=== PATIENT | female | born 1960 | race Two or more races ===

== ENCOUNTER 2019-12-18 09:14 | Outpatient (CLI) | payer BC | END 2019-12-18 23:59 | disposition home or self-care (01) | LOC: LAB 09:14 | PROVIDERS: ATTEND Specialist | DX: Z01.812 Encounter for preprocedural laboratory examination (principal); Z20.828 Contact with and (suspected) exposure to other viral communicable diseases | CPT/HCPCS: 87426; C9803 ==

== ENCOUNTER 2019-12-24 05:03 | Inpatient (IN) | payer BC ==
[~2019-12-24] VITALS: Ht 160 cm; Wt 111.1 kg
--- NOTE | 2019-12-24 05:25 | NUR ---
MS RN OPEN NOTES RECEIVED PT. PT WAS ABLE TO AMBULATE TO ROOM/ BED. A/O X4. ON RA, NO SOB/ ACUTE RESPIRATORY DISTRESS NOTED. ALL PAPERWORKS SIGNED FOR SURGERY. BED IS IN LOWEST LOCKED POSITION WITH SIDE RAILS UP X3, SEMI FOWLERS. PATIENT ORIENTED TO ROOM. CALL LIGHT IS WITHIN REACH. WAITING FOR SURGICAL PROCEDURE TO TAKE PLACE/
[2019-12-24 05:30] VITALS: BP 121/57
[2019-12-24] MEDS ORDERED: ANESTHESIA TRAY IN PYXIS 1 EA TRAY MC ONE (05:39)
[2019-12-24] MEDS ORDERED: BUPIVACAINE 0.5 % PF 150 MG/30 ML VIAL ONE (05:40)
[2019-12-24] MEDS ORDERED: BACITRACIN 50000 UNITS/VIAL ONE (05:40)
--- NOTE | 2019-12-24 06:07 | NUR ---
MS RN NOTES PATIENT PICKED UP FOR SURGERY.
[2019-12-24] MEDS ORDERED: CELLULOSE,OXIDIZED 1 PKT EACH MC ONE (06:50)
[2019-12-24] MEDS ORDERED: ROCURONIUM BROMIDE 50 MG/5 ML ONE (06:50)
[2019-12-24] MEDS ORDERED: SUCCINYLCHOLINE CHLORIDE 20 MG/ML VIAL ONE (06:51)
[2019-12-24] MEDS ORDERED: HYDROMORPHONE INJ 2 MG/ML DISP.SYRIN ONE (07:20)
[2019-12-24] MEDS ORDERED: TRANEXAMIC ACID 3,000 MG in SODIUM CHLORIDE IRRIG SOLUTION 70 ML IR ONE (07:30)
[2019-12-24] MEDS ORDERED: HYDROMORPHONE 1 MG/1 ML DISP.SYRIN ONE (08:55)
[2019-12-24] MEDS ORDERED: FENTANYL PF 100MCG/2ML AMPUL ONE (09:10)
[2019-12-24] MEDS ORDERED: MENTHOL/CETYLPYRD (CEPACOL) 1 LOZ LOZENGE MM PRN (09:30)
[2019-12-24] MEDS ORDERED: ZOFRAN 4mg/2ML IV PRN (09:30)
[2019-12-24] MEDS ORDERED: SENOKOT 8.6 MG TABLET PO PRN (09:30)
[2019-12-24] MEDS ORDERED: MAG HYDROX/AL HYDROX/SIMETH 30 ML UDC PO PRN (09:30)
[2019-12-24] MEDS ORDERED: DULCOLAX 10 MG/SUPP.RECT RC PRN (09:30)
[2019-12-24] MEDS ORDERED: diphenhydrAMINE HCL 25 MG CAPSULE PO PRN (09:30)
[2019-12-24] MEDS ORDERED: MAGNESIUM HYDROXIDE 30 ML UDC PO PRN (09:30)
[2019-12-24] MEDS ORDERED: CLONIDINE HCL 0.1 MG TABLET PO PRN (09:30)
[2019-12-24] MEDS ORDERED: HYDROCODONE/APAP 5/325MG TABLET PO PRN (09:30)
[2019-12-24] MEDS ORDERED: NALOXONE HCL 0.4 MG/ML AMPUL IV PRN (09:30)
[2019-12-24] MEDS ORDERED: TYLENOL 650 MG TABLET PO PRN (09:30)
[2019-12-24] MEDS ORDERED: COLACE 250 MG CAPSULE PO PRN (09:30)
[2019-12-24] MEDS ORDERED: BISACODYL SUPP (10 MG) 10 MG/SUPP.RECT SUPP.RECT RC PRN (10:00)
--- NOTE | 2019-12-24 10:00 | NUR ---
MS RN OPENING NOTES RECEIVED PT FROM SURGERY. S/P LEFT KNEE ARTHOSPLASTY. A/O X4. O2 VIA NC @ 2L SATURATING AT 99%. NO SOB NOTED AT THIS TIME. ALL VITAL SIGNS ARE WNL. IV SITE AT L HAND, INTACT, PATENT AND FLUSHED. NS AT 125 ML/HR. WITH LEFT KNEE DRESSINGS DRY AND INTACT. REPORTED PAIN. PAIN MEDS GIVEN ORDERED. SAFETY MEASURES OBSERVED. CALL LIGHT WITHIN REACH. BED LOCKED AND AT LOWEST POSITION. WILL CONTINUE TO MONITOR.
[2019-12-24] MEDS: HYDROMORPHONE INJ 2 MG/ML DISP.SYRIN SQ PRN ×3 (11:22→20:38)
[2019-12-24] MEDS: IV D5/0.45 NACL 1,000 ML IV PRN ×2 (11:38→21:48)
[2019-12-24] MEDS ORDERED: KEY,NONCONTROL,TO KEEP IN PYXI 1 EA MC ONE ×2 (13:03→20:49)
[2019-12-24] MEDS: MORPHINE SULFATE SR 15 MG TABLET.SA PO SCH ×2 (13:33→21:41)
[2019-12-24 13:44] LABS: HEMOGLOBIN 10.6 g/dL (11.5-14.8)
[2019-12-24] MEDS ORDERED: ALBUTEROL FS 2.5 MG/0.5 ML VIAL.NEB NEB PRN (14:30)
[2019-12-24] MEDS: oxyCODONE IR immediate release 5 MG PO PRN ×3 (14:37→23:15)
[2019-12-24] MEDS ORDERED: CEFAZOLIN 2 GM in IV D5W 100 ML IV SCH (15:00)
[2019-12-24] MEDS ORDERED: CEFAZOLIN 1 GM VIAL IV SCH (15:02)
[2019-12-24] MEDS: PREGABALIN 100 MG CAPSULE PO SCH ×2 (15:38→21:41)
[2019-12-24] MEDS: ANCEF 1 GM/50 ML D5W IV SCH ×4 (15:41→23:05)
[2019-12-24 16:00] VITALS: BP 131/84
[2019-12-24] MEDS: DOCUSATE SODIUM 100 MG CAPSULE PO SCH (17:42)
--- NOTE | 2019-12-24 19:35 | NUR ---
MS RN CLOSING NOTES PT REMAINS ON BED. S/P LEFT KNEE ARTHOSPLASTY. A/O X4. O2 VIA NC @ 2L SATURATING AT 99%. NO SOB NOTED AT THIS TIME. IV SITE AT L HAND, INTACT, PATENT AND FLUSHED. NS AT 125 ML/HR. WITH LEFT KNEE DRESSINGS DRY AND INTACT. STILL IN PAIN. PAIN MEDS GIVEN ORDERED. SAFETY MEASURES OBSERVED. CALL LIGHT WITHIN REACH. BED LOCKED AND AT LOWEST POSITION. WILL ENDORSE TO STONEWORK SUPERVISOR FOR JESSICA
--- NOTE | 2019-12-24 19:55 | NUR ---
MS/RN OPENING NOTES RECEIVED PATIENT IN BED, GRIMACE AND GUARDING , ON OXYGEN VIA NC AT 2 LITER , VITAL SIGNS WNL, PAIN REPORTED OF 8, USING PETROLEUM INSPECTOR PUMP NEEDED AND RECENT MEDICATION OXY IR PO , PATIENT UNDER PAIN MANAGED BY DR CORTES USE IM DILAUDID AT 3 HOURS INTERVAL, TO MONITOR OXYGENATION., CONTINOUS PULSE ORDER, HOME MEDICATION TO ENTER, BED LOCKED, CALL LIGHTS WITHIN REACH. LEFT LEG WITH DRESSING AND MONITOR FOR ANY BLEEDING. RECEIVED ENDORSEMENT FROM AM RN FOR JESSICA WITH ORDER 0.3 MG EVERY 12 MIN LOCK OUT AND MAX AT 6 MG WITH 4 HOUR LIMIT, PATIENT JUST HAD SURGERY ON LEFT TOTAL KNEE WITH DR ENGLAND AND CAME BACK THIS AM.
[2019-12-24 20:00] VITALS: BP 136/82
--- NOTE | 2019-12-24 20:38 | NUR ---
MS/RN NOTES NEEDED MEDICATION FOR SEVERE PAIN SUBCUTANEOUS INJECTION OF DILAUDID 1 ML/0.5ML ON RIGHT UPPER ARM TO MONITOR,
--- NOTE | 2019-12-24 20:44 | NUR ---
1MG/0.5 ML SUBCUTANEOUS INJECTION DILAUDID GIVEN ON RIGHT UPPER ARM, CO SIGNED BY ANOTHER RN .
--- NOTE | 2019-12-24 21:08 | NUR ---
RECEIVED FROM PHARMACY I30ML BAG FOR MOTOR CHECKER HYFROMORPHONE MDV AND KEPT IN CONTROLLED LOCKER AT MED ROOM WITH CONTROL ARNOLD TO OPEN IT. TO INFORM INCOMING NURSE IN AM.
[2019-12-24] MEDS: FAMOTIDINE (20 MG) 20 MG TABLET PO SCH (21:40)
--- NOTE | 2019-12-24 21:41 | NUR ---
SCHEDULED MS CONTIN 30 MG PO ( 2 TABS) GIVEN SCHEDULE WITH REPORTED PAIN BETWEEN 5 TO 8 LEVEL., ALERT, ORIENTED X3, OXYGENATION AT 2 LITER AT 97%. PROVIDED FLUIDS, ON IV HYDRATION.
[2019-12-24] MEDS ORDERED: AMBIEN 5 MG TABLET PO PRN (22:00)
[2019-12-24] MEDS ORDERED: LEVO25TA7 PO (22:54)
[2019-12-24] MEDS ORDERED: ROSU40TA PO (22:55)
[2019-12-24] MEDS ORDERED: OXYC-133 PO (22:56)
[2019-12-24] MEDS ORDERED: LISI-658 PO (22:58)
[2019-12-24] MEDS ORDERED: FLUT1DIS3 INH (22:59)
[2019-12-24] MEDS ORDERED: ERGO500014 (23:01)
--- NOTE | 2019-12-24 23:18 | NUR ---
NEEDED OXY IR 15 MG PO ( 3 TABLETS) GIVEN, PATIENT ALERT, ORIENTED X3 GUARDING, GRIMACING AND WITH PAIN 7/10 TO MONITOR, FOR RELIEF. ABLE TO TOLERATE FLUIDS, NO N/V,
[2019-12-25] MEDS: HYDROMORPHONE INJ 2 MG/ML DISP.SYRIN SQ PRN ×3 (00:52→14:59)
--- NOTE | 2019-12-25 00:52 | NUR ---
NEEDED DILAUDID 1 MG/0.5ML SQ INJECTION TO GIVE FOR SEVERE PAIN, , TO MONITOR, VITAL SIGNS WBL.OXYGENATION AT 2LITER AT 97%.
[2019-12-25] MEDS: ONDANSETRON HCL/PF 4 MG/2 ML VIAL IVP PRN ×3 (02:22→21:53)
--- NOTE | 2019-12-25 02:22 | NUR ---
NEEDED ZOFRAN IVP GIVEN FOR N/V.
--- NOTE | 2019-12-25 02:30 | NUR ---
SOPHIA AT BEDSIDE AND ORDERED IV 0.45 NS AT 50 ML INSTEAD OF 125 ML/HR PATIENT IS TOLERATING FLUIDS.
[2019-12-25] MEDS: oxyCODONE IR immediate release 5 MG PO PRN ×2 (03:40→18:49)
--- NOTE | 2019-12-25 03:43 | NUR ---
NEEDED OXY IR 15 MG PO GIVEN AND MONITOR FOR PAIN RELIEF. OXYGENATION AT 2 LITER VIA NC AT 97%, ALERT, ORIENTED X3.
[2019-12-25] MEDS: MORPHINE SULFATE SR 15 MG TABLET.SA PO SCH ×3 (05:07→21:13)
[2019-12-25] MEDS: PREGABALIN 100 MG CAPSULE PO SCH ×3 (05:08→21:12)
--- NOTE | 2019-12-25 06:22 | NUR ---
312-1 MS/RN NOTES PATIENT SLEPT FEW HOURS AWAKEN DUE TO ON GOING PAIN, MEDICATED FOR PAIN AND NAUSEA AND VOMITING, SURVEY TECHNOLOGIST WITH DESIRED SETTING, NEEDED MEDICATION GIVEN ORDERED, BED LOCKED, CALL LIGHTS WITHIN REACH, MONITORED, ATTENDED ALL NEEDS. WILL ENDORSE TO AM RN FOR JESSICA.
--- NOTE | 2019-12-25 07:30 | NUR ---
RN MS NOTES PT IN BED, AWAKE, ALERT AND ORIENTED, WITH COMPLAINT OF LEFT KNEE PAIN, PAIN MEDS GIVEN ORDERED, PT ON DREDGE PUMP OPERATOR PUMP, IV FLUIDS INFUSING WELL, CALL LIGHT WITHIN REACH, ASSISTED WITH NEEDS.
[2019-12-25 07:48] LABS: BASOPHILS % (AUTO) 0.1 % (0.0-2.0); HEMATOCRIT 31 % (33-45); HEMOGLOBIN 10.3 g/dL (11.5-14.8); LYMPHOCYTES # (AUTO) 1.4 /CMM (0.8-4.8); LYMPHOCYTES % (AUTO) 12.2 % (20.0-44.0); MEAN CORPUSCULAR HGB CONC 33 g/dl (31.0-36.0); MEAN CORPUSCULAR VOLUME 90 fL (82-100); MONOCYTES # (AUTO) 0.8 /CMM (0.1-1.30); MONOCYTES % (AUTO) 6.7 % (2.0-12.0); NEUTROPHILS # (AUTO) 9.3 /CMM (1.8-8.9); PLATELET COUNT (AUTO) 213 /CMM (150-450); RED BLOOD CELL COUNT(AUTO) 3.47 MIL/uL (4.0-5.2); WHITE BLOOD COUNT (AUTO) 11.5 K/uL (4.3-11.0)
[2019-12-25 08:00] VITALS: BP 162/84
[2019-12-25] MEDS: HYDROMORPHONE MDV 30 MG in IV NS 0.9% 15 ML, PCA TOTAL VOLUME 1 BAG IV PRN ×6 (08:43→15:22)
[2019-12-25 08:48] LABS: CREATININE 0.7 mg/dL (0.6-1.3)
[2019-12-25] MEDS: ASPIRIN 325 MG TABLET PO SCH (09:00)
[2019-12-25] MEDS: FAMOTIDINE (20 MG) 20 MG TABLET PO SCH ×2 (09:06→21:12)
[2019-12-25] MEDS: DOCUSATE SODIUM 100 MG CAPSULE PO SCH ×2 (09:06→16:25)
--- NOTE | 2019-12-25 13:00 | NUR ---
RN MS NOTES PT IN BED, RESTING, PAIN MEDS GIVEN ORDERED, WITH SOME RELIEF, IV FLUIDS INFUSING WELL, SEEN BY DR. MATUTE, PLAN OF CARE DISCUSSED WITH PT, VERBALIZED UNDERSTANDING, NEEDS ATTENDED.
[2019-12-25 16:00] VITALS: BP 150/101
--- NOTE | 2019-12-25 18:26 | NUR ---
MS END OF SHIFT NOTES PT REMAINS ON BED. S/P LEFT KNEE ARTHOSPLASTY. A/O X4. O2 VIA NC @ 2L NO SOB NOTED AT THIS TIME. IV SITE AT L HAND, INTACT, PATENT AND FLUSHED. PATIENT REPORTS PAIN 8/10 ON PAIN SCALE. PAIN MEDS GIVEN ORDERED. PATIENT WITH EPISODES OF NAUSEA AND VOMITING, ZOFRAN 4 MG GIVEN. SAFETY MEASURES OBSERVED. CALL LIGHT WITHIN REACH. BED LOCKED AND AT LOWEST POSITION.
--- NOTE | 2019-12-25 18:56 | NUR ---
RN MS NOTES KUB RESULTS RELAYED TO DR. MATUTE, AWAITING ORDERS.
--- NOTE | 2019-12-25 19:40 | NUR ---
MS RN NOTE: PATIENT RESTING IN BED, NO ACUTE DISTRESS NOTED. BREATHING EVEN AND UNLABORED, NO SOB NOTED. IV TO LFA IN PLACE, INFUSING D5 1/2NS AT 50ML/HR. PATIENT ON POLICY ISSUE CLERK PUMP OF DILAUDID AT 0.3MG, LOCK OUT EVERY 12 MINUTES. BED LOCKED AND IN LOWEST POSITION, CALL LIGHT IN REACH. WILL CONTINUE TO MONITOR.
[2019-12-25 20:00] VITALS: BP 150/86
[2019-12-25] MEDS ORDERED: KEY,NONCONTROL,TO KEEP IN PYXI 1 EA MC ONE (21:06)
--- NOTE | 2019-12-25 21:55 | NUR ---
MS RN NOTE: PATIENT COMPLAINS OF NAUSEA, ZOFRAN 4MG IV GIVEN PER MD ORDER. WILL CONTINUE TO MONITOR.
[2019-12-26] MEDS: IV D5/0.45 NACL 1,000 ML IV PRN (00:59)
[2019-12-26] MEDS: HYDROMORPHONE INJ 2 MG/ML DISP.SYRIN SQ PRN ×3 (01:00→15:13)
--- NOTE | 2019-12-26 01:05 | NUR ---
MS RN NOTE: PATIENT COMPLAINS OF SEVERE PAIN EVEN WITH USE OF UTILITY WORKER ROLLER SHOP PUMP. DILAUDID 1MG SUBCUTANEOUS GIVEN PER MD ORDER. WILL CONTINUE TO MONITOR.
[2019-12-26] MEDS: ONDANSETRON HCL/PF 4 MG/2 ML VIAL IVP PRN (03:15)
[2019-12-26] MEDS ORDERED: KEY,NONCONTROL,TO KEEP IN PYXI 1 EA MC ONE ×2 (03:39→21:50)
[2019-12-26] MEDS: HYDROMORPHONE MDV 30 MG in IV NS 0.9% 15 ML, PCA TOTAL VOLUME 1 BAG IV PRN ×6 (03:44→09:51)
--- NOTE | 2019-12-26 03:45 | NUR ---
MS RN NOTE: PATIENT DILAUDID TWISTER OPERATOR PUMP BAG CHANGED. DILAUDID AT 0.3MG IV ON DEMAND, LOCK OUT 12 MINUTES, 4 HOUR MAX OF 6MG. WASTED 25ML OF DILAUDID FROM PREVIOUS BAG AND WITNESSED BY ROXI MARTIN. WILL CONTINUE TO MONITOR.
[2019-12-26] MEDS: MORPHINE SULFATE SR 15 MG TABLET.SA PO SCH ×3 (05:03→21:53)
[2019-12-26] MEDS: PREGABALIN 100 MG CAPSULE PO SCH ×3 (05:03→21:53)
--- NOTE | 2019-12-26 06:10 | NUR ---
MS RN NOTE: PATIENT RESTING IN BED, NO ACUTE DISTRESS NOTED. BREATHING EVEN AND UNLABORED, NO SOB NOTED. IV TO LFA IN PLACE, INFUSING D5 1/2NS AT 50ML/HR. PATIENT ON PUBLIC RELATIONS SALES MARKETING PUMP OF DILAUDID AT 0.3MG, LOCK OUT EVERY 12 MINUTES. BED LOCKED AND IN LOWEST POSITION, CALL LIGHT IN REACH. WILL ENDORSE TO DAY NURSE TO CONTINUE WITH PLAN OF CARE.
[2019-12-26 08:00] VITALS: BP 152/88
--- NOTE | 2019-12-26 08:55 | NUR ---
MS OPENING SHIFT NOTES RECEIVED PATIENT IN BED, AWAKE, ALERT AND ORIENTED, ON RA, PATIENT COMPLAINT OF LEFT KNEE PAIN 8/10 ON PAIN SCALE, PT ON GROOVER AND STRIPER OPERATOR PUMP, IV FLUIDS INFUSING WELL, CALL LIGHT WITHIN REACH, BED AT LOWEST POSITION AND LOCKED.
[2019-12-26] MEDS: ASPIRIN 325 MG TABLET PO SCH (09:00)
[2019-12-26] MEDS: DOCUSATE SODIUM 100 MG CAPSULE PO SCH ×2 (09:44→17:25)
[2019-12-26] MEDS: FAMOTIDINE (20 MG) 20 MG TABLET PO SCH ×2 (09:44→21:53)
--- NOTE | 2019-12-26 11:33 | NUR ---
RN MS NOTES PT SEEN BY CLEOPATRA CARR FOR ORTHO, DRESSING CHANGE DONE, PT TOLERATED WELL, STATED THAT HER PAIN LEVEL IS DOWN TO 6 AND FEELS BETTER.
[2019-12-26 16:00] VITALS: BP 137/96
--- NOTE | 2019-12-26 16:00 | NUR ---
RN MS NOTES RECEIVED ORDER FROM DR. CORTES TO D/C TEXTILE TECHNOLOGIST DILAUDID AFTER CURRENT BAG.
--- NOTE | 2019-12-26 18:44 | NUR ---
MS END OF SHIFT NOTES PATIENT RESTING IN BED, S/P LEFT KNEE ARTHOSPLASTY, A/O X4. O2 VIA NC @ 2L, ON CONTINUOUS PULSE OX. NO SOB NOTED AT THIS TIME. IV SITE AT L HAND, INTACT, PATENT AND FLUSHED. PATIENT CONTINOUS ON PAIN MANAGEMENT, WITH PAIN IMPROVEMENT NOTED. PATIENT REPORTS PAIN 4/10 ON PAIN SCALE. PIG CONVEYOR OPERATOR TO BE D/C AT 2100. PATIENT WAS ABLE TO SIT AT EDGE OF BED WITH PT ATMOSPHERIC PHYSICIST, ON CPM FOR ABOUT AN HOUR OFF AN ON TOLERATED. PT WILL CONTINUE ON PAIN MANAGEMENT AND PLAN TO DC ONCE PAIN IS CONTROLLED. PATIENT WAS ABLE TO PASS GAS, ENCOURAGED ACTIVITY, PATIENT ON INCENTIVE SPIROMETER, SAFETY MEASURES OBSERVED. CALL LIGHT WITHIN REACH. BED LOCKED AND AT LOWEST POSITION.
[2019-12-26 20:00] VITALS: BP 149/88
--- NOTE | 2019-12-26 20:00 | NUR ---
RN NOTES RECEIVED PT. SLEEPING BUT AROUSABLE, A/OX4, LEFT KNEE DRESSING DRY AND INTACT, ON NYLON HOT WIRE CUTTER DILAUDID 0.3MG, DENIES PAIN NO, SOB, CALL LIGHT WITHIN REACH, [id number], CONTINUE TO MONITOR
--- NOTE | 2019-12-26 21:25 | NUR ---
RN NOTES STOPPED STEEL SPAR OPERATOR DILAUDID PER MD'S STANDING ORDER,
[2019-12-27] MEDS: HYDROMORPHONE INJ 2 MG/ML DISP.SYRIN SQ PRN ×2 (03:18→08:22)
--- NOTE | 2019-12-27 03:22 | NUR ---
RN NOTES COMPLAINED OF LEFT KNEE PAIN- DILAUDID 0.5MG SQ GIVEN ORDERED, V/S STABLE
[2019-12-27] MEDS: MORPHINE SULFATE SR 15 MG TABLET.SA PO SCH (05:40)
[2019-12-27] MEDS: PREGABALIN 100 MG CAPSULE PO SCH ×2 (05:41→13:00)
--- NOTE | 2019-12-27 06:45 | NUR ---
RN NOTES SLEEPING BUT AROUSABLE, NO PAIN NOTED, NOT IN DISTRESS, MORNING CARE RENDERED, CALL LIGHT WITHIN REACH, [id number], PT. NEEDS ATTENDED
--- NOTE | 2019-12-27 07:37 | NUR ---
MS RN OPENING NOTES PATIENT IS SLEEPING IN BED WITH NO SIGNS OF DISTRESS IN ROOM AIR. INCENTIVE SPIROMETER AT BEDSIDE. IV L FA #20G INTACT I GOT ENDORSED BY THE ORTHOPEDIC SURGEON NURSE PATIENT DOES NOT WANT ANYMORE IV FLUIDS. LEGAL MANAGER PUMP STOPPED LAST NIGHT. SAFETY MEASURES ARE APPLIED, BED IS IN LOCK AND LOW POSITION. SIDE RAILS UP X 2 FOR SAFETY. CALL LIGHT WITHIN REACH WILL CONTINUE TO MONITOR.
[2019-12-27 08:00] VITALS: BP 154/87
[2019-12-27] MEDS: DOCUSATE SODIUM 100 MG CAPSULE PO SCH ×2 (08:22→16:51)
[2019-12-27] MEDS: FAMOTIDINE (20 MG) 20 MG TABLET PO SCH (08:22)
--- NOTE | 2019-12-27 08:24 | NUR ---
PATIENT COMPLAINS OF 8/10 PAIN GIVING DILAUDID 1MG GIVEN PER MD ORDER. RESPIRATORY RATE IS 20 SPO2 94%. WILL CONTINUE TO MONITOR
[2019-12-27] MEDS: SENNOSIDES 8.6 MG TABLET PO SCH ×2 (08:30→16:51)
[2019-12-27] MEDS: ASPIRIN 325 MG TABLET PO SCH (08:39)
[2019-12-27 10:58] LABS: BASOPHILS % (AUTO) 0.4 % (0.0-2.0); EOSINOPHILS % (AUTO) 1.2 % (0.0-6.0); HEMATOCRIT 30 % (33-45); HEMOGLOBIN 9.8 g/dL (11.5-14.8); LYMPHOCYTES # (AUTO) 2.6 /CMM (0.8-4.8); LYMPHOCYTES % (AUTO) 25.9 % (20.0-44.0); MEAN CORPUSCULAR HGB CONC 33 g/dl (31.0-36.0); MEAN CORPUSCULAR VOLUME 91 fL (82-100); MONOCYTES % (AUTO) 9.8 % (2.0-12.0); NEUTROPHILS # (AUTO) 6.3 /CMM (1.8-8.9); NEUTROPHILS % (AUTO) 62.7 % (43.0-81.0); PLATELET COUNT (AUTO) 208 /CMM (150-450); RED BLOOD CELL COUNT(AUTO) 3.26 MIL/uL (4.0-5.2)
[2019-12-27 11:54] LABS: ALBUMIN 3.1 g/dL (3.4-5.0); BILIRUBIN,TOTAL 0.5 mg/dL (0.2-1.0); CALCIUM, SERUM 8.6 mg/dL (8.5-10.1); CREATININE 0.8 mg/dL (0.6-1.3); POTASSIUM 3.9 mmol/L (3.5-5.1); TOTAL PROTEIN, SERUM 7.2 g/dL (6.4-8.2)
[2019-12-27] MEDS ORDERED: MORPHINE SULFATE SR 15 MG TABLET.SA PO SCH (13:00)
[2019-12-27] MEDS: ONDANSETRON HCL/PF 4 MG/2 ML VIAL IVP PRN (14:37)
[2019-12-27 16:00] VITALS: BP 151/79
[2019-12-27] MEDS ORDERED: ALBU2.5V13 NEB (16:27)
[2019-12-27] MEDS ORDERED: PREG100C PO (16:27)
[2019-12-27] MEDS ORDERED: DOCU-270 PO (16:27)
[2019-12-27] MEDS ORDERED: ASPI-992 PO (16:27)
[2019-12-27] MEDS ORDERED: ZOLP5TAB2 PO (16:27)
[2019-12-27] MEDS ORDERED: SENN-261 PO (16:27)
[2019-12-27] MEDS ORDERED: MORP15TA10 PO (16:27)
[2019-12-27] MEDS ORDERED: CLON0.1T14 PO (16:27)
--- NOTE | 2019-12-27 18:50 | NUR ---
[facility] PETE DIANE PATIENT WILL BE GOING TO ROOM 56A UNIVERSITY PROFESSOR AT 1930.
--- NOTE | 2019-12-27 19:00 | NUR ---
MS RN OPENING NOTES PATIENT IS A/O X 4 IN BED WITH NO SIGNS OF DISTRESS IN ROOM AIR. INCENTIVE SPIROMETER AT BEDSIDE. IV L FA #20G INTACT. PATIENT REMAINED STABLE THROUGH OUT SHIFT. PATIENT KEPT CLEAN AND DRY. ALL NEEDS, CARE, TREATMENT AND MEDICATIONS ADMINISTERED ANTICIPATED PER ORDER. SAFETY MEASURES ARE APPLIED, BED IS IN LOCK AND LOW POSITION. SIDE RAILS UP X 2 FOR SAFETY. CALL LIGHT WITHIN REACH. DISCHARGE PAPER WORK COMPLETED AND BELONGING LIST WELL. AMBULANCE DELIVERY CLERK AT 1930. WILL ENDORSE TO THE NEXT TRACK RIDER NURSE. Addendum: 12/27/19 at 1954 by DOUG BOX RN MS RN CLOSING NOTES PATIENT IS A/O X 4 IN BED WITH NO SIGNS OF DISTRESS IN ROOM AIR. INCENTIVE SPIROMETER AT BEDSIDE. IV L FA #20G INTACT. PATIENT REMAINED STABLE THROUGH OUT SHIFT. PATIENT KEPT CLEAN AND DRY. ALL NEEDS, CARE, TREATMENT AND MEDICATIONS ADMINISTERED ANTICIPATED PER ORDER. SAFETY MEASURES ARE APPLIED, BED IS IN LOCK AND LOW POSITION. SIDE RAILS UP X 2 FOR SAFETY. CALL LIGHT WITHIN REACH. DISCHARGE PAPER WORK COMPLETED AND BELONGING LIST WELL. AMBULANCE DELIVERY CLERK AT 1930. WILL ENDORSE TO THE NEXT TRACK RIDER NURSE.
--- NOTE | 2019-12-27 19:51 | NUR ---
DR. SAUCEDO GAVE THE OK [facility]
[2019-12-27 20:00] VITALS: BP 140/80
--- NOTE | 2019-12-27 20:15 | NUR ---
MS/LITHOGRAPHIC PHOTOGRAPHER NOTE Patient discharge information reviewed and signed with patient. Report given to receiving SNF nurse. BP140/80 T98.5 P95 R18 [id number]%. All belongings reviewed and given to patient. IV removed, clean and intact.
[2019-12-28] MEDS ORDERED: LEVOTHYROXINE SODIUM 25 MCG TABLET PO SCH (07:30)
[2019-12-28] MEDS ORDERED: FLUTICASONE/VILANTEROL 1 EACH BLST.W.DEV IH SCH (09:00)
[2019-12-28] MEDS ORDERED: ATORVASTATIN 40 MG TABLET PO SCH (09:00)
[2019-12-28] MEDS ORDERED: ERGOCALCIFEROL (VITAMIN D 2) 50,000 UNIT CAPSULE PO SCH (09:00)
[2019-12-28] MEDS ORDERED: LISINOPRIL (20MG) 20 MG TABLET PO SCH (09:00)
== END 2019-12-28 | DRG 470 ==
LOC: DS 05:03 → MED 05:04
PROVIDERS: ADMIT Nurse Practitioner Acute Care; ATTEND Nurse Practitioner Acute Care
PROC: 0SRD0J9 Replacement of Left Knee Joint with Synthetic Substitute, Cemented, Open Approach (ICD-10-PCS; principal; 2019-12-24)
DX: M17.12 Unilateral primary osteoarthritis, left knee (principal); Z68.41 Body mass index [BMI] 40.0-44.9, adult; K90.9 Intestinal malabsorption, unspecified; F11.20 Opioid dependence, uncomplicated; G89.29 Other chronic pain; E66.01 Morbid (severe) obesity due to excess calories; K21.9 Gastro-esophageal reflux disease without esophagitis; Z82.49 Family history of ischemic heart disease and other diseases of the circulatory system; I11.0 Hypertensive heart disease with heart failure; K31.84 Gastroparesis; E78.5 Hyperlipidemia, unspecified; I50.9 Heart failure, unspecified; J44.9 Chronic obstructive pulmonary disease, unspecified
CPT/HCPCS: 36415; 80048-TC; 80053-TC; 85025-TC; 85027-TC; 86850-TC; 87081-TC; 88305-TC; 88311-TC; 97530-TC; A4217; C1713; C1776; G0378; J0330; J0360; J0690; J1170; J2405; J2704; J2765; J3010; J3490; J7060; L1830